=== PATIENT | male | born 1985 | race African-American/Black ===

== ENCOUNTER 2017-12-13 14:18 | Emergency (ER) | payer MEDICAID, OTHER ==
[~2017-12-13] VITALS: Ht 175.3 cm; Wt 117.9 kg
[2017-12-13] MEDS ORDERED: Norco 5mg/325mg tab PO ONE (15:00)
[2017-12-13] MEDS ORDERED: IBUPROFEN600 MG ORAL (15:41)
[2017-12-13 15:47] VITALS: BP 119/86
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
== END 2017-12-13 15:55 | disposition home or self-care (01) ==
LOC: EMR 15:48
DX: S80.01XA Contusion of right knee, initial encounter (principal); V43.62XA Car passenger injured in collision with other type car in traffic accident, initial encounter; Y92.410 Unspecified street and highway as the place of occurrence of the external cause
CPT/HCPCS: 99283

== ENCOUNTER 2019-10-31 22:36 | Emergency (ER) | payer MEDICAID, OTHER ==
[~2019-10-31] VITALS: Ht 177.8 cm; Wt 120.2 kg
[~2019-10-31 22:36] MED LIST: IBUPROFEN600 MG ORAL
[2019-10-31 22:53] VITALS: BP 131/86
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
[2019-10-31] MEDS ORDERED: ceFAZolin 1gm/50ml Premix 50 ML IV ONE (23:15)
[2019-10-31] MEDS ORDERED: Ketorolac 30mg Inj IV ONE (23:15)
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
[2019-10-31 23:42] LABS: EOSINOPHILS % (AUTO) 1.3 % (0.0-3.0); HEMATOCRIT 52.6 % (42.0-52.0); LYMPHOCYTES % (AUTO) 25.1 % (20.0-45.0); MEAN CORPUSCULAR VOLUME 79 FL (80-99); MONOCYTES % (AUTO) 6.1 % (1.0-10.0); NEUTROPHILS % (AUTO) 66.5 % (45.0-75.0); PLATELET COUNT 236 K/UL (150-450); RED BLOOD COUNT 6.67 M/UL (4.70-6.10); RED CELL DISTRIBUTION WIDTH 10.5 % (11.6-14.8); WHITE BLOOD COUNT 12.1 K/UL (4.8-10.8)
--- NOTE | 2019-10-31 23:45 | NUR ---
ED Nurse Note: Patient went for CT
[2019-10-31 23:46] LABS: HEMOGLOBIN 18.9 G/DL (14.2-18.0)
[2019-10-31 23:54] LABS: ANION GAP 8 mmol/L (5-15); BLOOD UREA NITROGEN 10 mg/dL (7-18); CALCIUM 9.6 MG/DL (8.5-10.1); CARBON DIOXIDE 31 MMOL/L (21-32); CHLORIDE 96 MMOL/L (98-107); CREATININE 1.1 MG/DL (0.55-1.30); SODIUM 135 MMOL/L (136-145)
[2019-10-31 23:59] LABS: ALANINE AMINOTRANSFERASE 49 U/L (12-78); ALBUMIN/GLOBULIN RATIO 0.8 (1.0-2.7); ALKALINE PHOSPHATASE 113 U/L (46-116); ASPARTATE AMINO TRANSFERASE 15 U/L (15-37); BILIRUBIN,TOTAL 0.6 MG/DL (0.2-1.0)
--- NOTE | 2019-11-01 00:01 | NUR ---
ED Nurse Note: Patient is back from CT
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
[2019-11-01] MEDS ORDERED: metFORMIN 500mg tab ORAL STA ×2 (00:49→02:53)
[2019-11-01] MEDS ORDERED: Insulin Human Regular 100units/ml 3ml IV ONE (02:00)
[2019-11-01] MEDS ORDERED: BACTRIM DS TAB1 EAC1 ORAL (03:04)
[2019-11-01] MEDS ORDERED: METFORMIN HCL850 M1 ORAL (03:04)
[2019-11-01] MEDS ORDERED: ACCU-CHEK1 EAC5 MC (03:04)
[2019-11-01] MEDS ORDERED: CEPHALEXIN500 MG ORAL (03:04)
[2019-11-01 03:17] VITALS: BP 131/86
--- NOTE | 2019-11-01 03:17 | NUR ---
ER DISCHARGE NOTE: Patient is cleared to be discharged per ERMD, pt is aox4, on room air, with stable vital signs. pt was given dc and prescription instructions, pt was able to verbalize understanding, pt id band and iv site removed without complications. pt is able to ambulate with steady gait. pt took all belongings.
== END 2019-11-01 03:17 | disposition home or self-care (01) ==
LOC: EMR 22:59 → CANBEDREQ 11-01 01:59 → EMR 11-01 03:17
DX: L03.114 Cellulitis of left upper limb (principal); R73.9 Hyperglycemia, unspecified
CPT/HCPCS: 36415; 73200; 80053; 85025; 85651; 87040; 96361; 96365; 96375; J0690; J1815; J1885; Z7502; 99284